=== PATIENT | male | born 1945 | race Caucasian/White ===

== ENCOUNTER → 2018-11-23 14:59 | Outpatient (CLI) | payer OTHER, SELFPAY ==
--- NOTE | 2018-11-23 15:04 | DI.RAD.S_ITS ---
PROCEDURE: XR LUMBAR SPINE 2-3V INDICATIONS: low back pain >3 months TECHNIQUE: 3 views of the lumbar spine were acquired. COMPARISON: None. FINDINGS: Bones: 5 [id number] vertebrae are present. There is levoscoliotic bony alignment centered at the thoracolumbar junction. Degenerative disc disease is most prominent at the thoracolumbar junction and upper third of the LS-spine, without subluxation. Facet osteoarthritis becomes progressively more prominent from L3 inferiorly.. No vertebral body compression fractures. No suspicious bony lesions. Soft tissues: Overlying bowel gas pattern is normal. No suspicious soft tissue calcifications. IMPRESSION: No trauma foun, no prior compression fracture is suspected. Upper lumbar degenerative disc disease is moderate in severity overall, and mild more inferiorly. Facet osteoarthritis is mild superiorly and moderate to moderately severe over the lower half of the LS-spine. Dictated by: Derrick Fisher M.D. on 11/23/2018 at 16:05 Approved by: Derrick Fisher M.D. on 11/23/2018 at 16:07
--- NOTE | 2018-11-23 15:04 | DI.MRI.S_ITS ---
PROCEDURE: MR LUMBAR SPINE WO CON INDICATIONS: Low back pain. Left leg weakness TECHNIQUE: Noncontrast sagittal T1 spin echo and T2 fast echo, sagittal STIR, axial T1 and T2 fast spin echo through the lumbar spine. In cases with scoliosis, additional coronal T2 fast spin echo may be performed. COMPARISON: [facility], CR, XR LUMBAR SPINE 2-3V, 11/23/2018, 15:03. FINDINGS: Image quality: Excellent. Alignment and Curvature: There is trace retrolisthesis of L2 on L3, L4 and L5, L5 on S1. Bone Marrow: Marrow is of normal overall signal. There is increased T2 and heterogeneous increased T1 signal at L4. No acute vertebral body compression fractures. Spinal Cord: Conus medullaris terminates at the L1-L2 level. Visualized cord demonstrates normal signal and size. Paraspinous Soft Tissues: No paravertebral masses. Left renal cyst is noted. Discs: Mild to moderate disc desiccation is present of the lumbar spine most severe at L1-L2 and L2-3. L1-L2: Mild disc bulge without spinal stenosis or foraminal narrowing. L2-L3: Mild disc bulge with mild to moderate spinal stenosis. Severe bilateral foraminal narrowing with facet and ligamentum flavum arthropathy. L3-L4: Mild disc bulge with minimal canal narrowing. Mild to moderate bilateral foraminal narrowing left greater than right with facet and ligamentum flavum hypertrophy. L4-L5: Mild disc bulge with minimal canal narrowing. Mild to moderate bilateral foraminal narrowing with facet and ligamentum flavum hypertrophy. L5-S1: Mild disc bulge with mild spinal stenosis. Moderate left and mild to moderate right foraminal narrowing with facet and ligamentum flavum hypertrophy. IMPRESSION: 1. Multilevel foraminal narrowing most severe at L2-3 secondary to facet/ligamentum flavum arthropathy as well as retrolisthesis. 2. Overall minimal to mild spinal stenosis, mild to moderate L2-3 secondary to disc bulge with contributing effect of facet/ligamentum flavum arthropathy. 3. Increased T2 and heterogeneous T1 signal L4. This is suspected to represent a lipid poor hemangioma. However, if there is no neoplasm or other concern for metastatic disease, contrast study is recommended for further evaluation. Dictated by: Elizabeth Menendez M.D. on 11/23/2018 at 17:10 Approved by: Elizabeth Menendez M.D. on 11/23/2018 at 17:18
== END ==
PROVIDERS: PCP Student in an Organized Health Care Education/Training Program; Visit Provider Registered Nurse
DX: R29.898 Other symptoms and signs involving the musculoskeletal system (principal); M48.062 Spinal stenosis, lumbar region with neurogenic claudication; M48.07 Spinal stenosis, lumbosacral region; M47.816 Spondylosis without myelopathy or radiculopathy, lumbar region; M47.817 Spondylosis without myelopathy or radiculopathy, lumbosacral region; M51.26 Other intervertebral disc displacement, lumbar region
CPT/HCPCS: 72100; 72148

== ENCOUNTER 2019-02-11 12:58 | Outpatient (CLI) | payer OTHER, SELFPAY ==
[2019-02-11] VITALS (7 sets, daily range): BP systolic 127–164; BP diastolic 68–79; PULSE 53–62; RESP 14–16; TEMP 36.5; O2SAT 95–98
--- NOTE | 2019-02-11 12:59 | DI.RAD.S_ITS ---
PROCEDURE: PAIN L/S FACET INJ/BLK 1ST JOSÉ COMPARISON: None. INDICATIONS: SPONDYLOSIS FINDINGS: Needle tip localization has been performed bilaterally for facet joint steroid injection at L4-5 and L5-S1 (4 separate sites of intervention). IMPRESSION: Successful needle tip localization for 4 separate facet joint steroid injections as noted above. Dictated by: Derrick Fisher M.D. on 02/11/2019 at 15:49 Approved by: Derrick Fisher M.D. on 02/11/2019 at 15:51
[2019-02-11] MEDS: fentaNYL 100 MCG/2 ML INJ 50 MCG IV (14:17)
[2019-02-11] MEDS: MIDAZOLAM 5 MG/5 ML VIAL IV (14:18)
[2019-02-11] MEDS: LIDOCAINE 1% 20 ML 10 ML INJ (14:22)
[2019-02-11] MEDS: BETAMETHASONE 30 MG/5 ML MDV 12 MG INJ (14:23)
[2019-02-11] MEDS: BUPIVACAINE 0.5% (PF) VIAL 2 ML INJ (14:23)
[2019-02-11] MEDS: IOPAMIDOL 15 ML VIAL 3 ML INJ (14:23)
--- NOTE | 2019-02-11 14:28 | PC.NURSE ---
ASSISTING PT OFF TABLE AND TRANSPORTING TO POST PROC AREA IN STABLE CONDITION. PASSING RN CARE OF PT TO MALINDA Mustafa RN. PREPPED AND ADMINISTERED VERSED AND FENTANYL. ALL OTHER MEDS PREPPED AND ADMINISTERED BY DR. NATH.
--- NOTE | 2019-02-11 14:35 | P.PCN_ITS ---
Procedures Date/Time Date of procedure: 02/11/19 Time of procedure: 14:35 General Procedure description: PREOP DIAGNOSIS 1. FACET ARTHROPATHY 2. AXIAL LBP 3. MULTILEVEL DDD POST OP DIAGNOSIS 1. FACET ARTHROPATHY 2. AXIAL LBP 3. MULTILEVEL DDD PROCEDURES 1. FLUORSCOPICALLY GUIDED CONTRAST CONTROLLED FACET JOINT INJECTIONS BILATERAL L4/5, L5/S1 PHYSICIAN: Pedro Merrill, DO INDICATIONS Aneudy is referred by Dr. Calabrese for treatment of Axial LBP FINDINGS Multilevel Facet Arthropathy with Clinically significant axial LBP DESCRIPTION OF PROCEDURE Fluoroscopically guided, contrast-controlled bilateral L4/5, L5/S1 facet joint injections. Following review of allergy and review of potential side effects and complications, including, but not necessarily limited to, infection, allergic reaction, local tissue breakdown, stroke, temporary or permanent nerve injury, paralysis, and possible , the patient indicated that the patient understood and agreed to proceed. An informed consent document was signed by the patient, witnessed by a nurse, and placed in the patient's chart. Additionally, other treatment options including medications, modalities, and physical therapy were reviewed with the patient. After review of previous anaesthesic history and IV conscious sedation the patient was deemed safe to proceed with todays procedure with IV conscious sedation as ASA class II designation. Safety time-out was performed to confirm patient ID, procedure to be performed and site of procedure. IV sedation was accomplished with a combination of 3mg of Versed and 50mcg of Fentanyl was administered by the RN after DO order, titrated to patient comfort during the course of the procedure while the patient remained responsive to all verbal commands In the prone position, following sterile prep and drape of the lumbar region, the posterior aspect of the L4/5, L5/S1 facet joints were identified fluoroscopically. The skin was anesthetized via a 25-gauge 1.5-inch needle with 1% lidocaine solution into the corresponding facet joints. At this point, a 22- gauge 3.5-inch spinal needle was atraumatically introduced and advanced under fluoroscopic guidance into the corresponding facet joints. Following negative aspiration, injections of approximately 0.2-cc of Isovue 200 confirmed interarticular placement without vascular uptake. The identical procedure was then performed at the L4/5, L5/S1 facet joints on the left. Radiological data, including multiple fluoroscopic views of the lumbosacral spine, reveal a spinal needle at the L4/5, L5/S1 facet joints bilaterally. Subsequent views show flow of contrast material both superiorly and inferiorly within the joint space without vascular or intrathecal uptake. At this point, a total of 0.5 cc including a mixture of 0.25cc Marcaine and 0.25cc betamethasone was injected without complication into each of the corresponding facet joints. The patient tolerated the procedure well without signs or symptoms of complications prior to transfer to the recovery area continued monitoring without incident. The patient was then transferred to the recovery area where they were observed for an appropriate period of time after the injection. The patient reported a VAS score of 7 prior to the procedure and a post- procedure VAS of 0. Total Fluoroscopy Time: 20.3 seconds Total Conscious Sedation Time: 24min POST OP INSTRUCTIONS The patient was provided a Pain Log to continue to record their response to the target-specific procedure prior to follow-up visit with their referring physician. Additionally, specific post-injection care instructions and a contact number to our office were provided if concerns arise regarding possible complications associated with the procedure are suspected. Pedro Merrill DO Complications: none
--- NOTE | 2019-02-11 14:39 | PC.NURSE ---
1435: DI note: Received patient awake and alert, up out of WC to chair in stable condition.
== END 2019-02-11 15:00 | disposition home or self-care (01) ==
PROVIDERS: Family Provider Student in an Organized Health Care Education/Training Program; PCP Student in an Organized Health Care Education/Training Program; Visit Provider Physical Medicine & Rehabilitation
DX: M47.817 Spondylosis without myelopathy or radiculopathy, lumbosacral region (principal); M47.816 Spondylosis without myelopathy or radiculopathy, lumbar region; M54.5 Low back pain; M51.36 Other intervertebral disc degeneration, lumbar region; M51.37 Other intervertebral disc degeneration, lumbosacral region
CPT/HCPCS: 64493; 64494; 99152; J0702; J2250; J3010